=== PATIENT | male | born 1995 | race Caucasian/White ===

== ENCOUNTER 2019-11-27 23:41 | Emergency (ER) | payer SELFPAY ==
--- NOTE | 2019-11-27 23:47 | ED_ITS ---
HPI - Back Pain/Injury General: Stated Complaint: back pain Time Seen by Provider: 11/27/19 23:47 Source: patient Mode of arrival: ambulatory Limitations: no limitations History of Present Illness: HPI Narrative: Patient reports he was at the [facility] and was lifting a basket of close and turned with it feeling a pop in his left lower back. Since that time patient has had worsening back pain and discomfort. Patient appears well. Patient appears in mild to moderate pain. Review of Systems General: Reports: 10 or more systems reviewed and unremarkable except in HPI and below Musc: Reports: back pain Physical Exam Const: COMMON NORMALS: no apparent distress and oriented x3 GENERAL APPEARANCE: cooperative HENMT: COMMON NORMALS: normocephalic, external ears normal, EAC's normal, TM's normal bilaterally and external nose normal HEAD & SCALP: normal to inspection and normocephalic FACE & SINUS: normal facial exam NOSE: external nose normal GENERAL EAR: hearing not grossly impaired EXTERNAL EAR: Yes external ears normal EXTERNAL AUDITORY CANAL: EAC's normal TYMPANIC MEMBRANE: TM's normal bilaterally MOUTH: oral and palatal mucosa normal THROAT: posterior oropharynx normal Eye: COMMON NORMALS: PERRL and EOMs intact bilaterally PUPIL: Yes PERRL Neck/C-Spine: COMMON NORMALS: full ROM and no lymphadenopathy Lymph: LYMPHATIC: no lymphedema noted Chest: COMMONS NORMALS: inspection of chest normal and palpation of chest normal Resp: COMMON NORMALS: normal respiratory effort and clear to auscultation bilaterally AUSCULTATION: clear to auscultation bilaterally Cardio: COMMON NORMALS: regular rate and regular rhythm RATE: regular rate RHYTHM: regular rhythm GI: COMMON NORMALS: normal to inspection, nondistended, normoactive bowel sounds and non-tender : COMMON NORMALS: Yes no CVA tenderness BLADDER/KIDNEY EXAM: Yes no CVA tenderness Back/Pelvis: COMMON NORMALS: no CVA tenderness LUMBAR SPINE/LOWER BACK: Yes paraspinal muscle tenderness Lumbar paraspinal muscle tenderness: left and Yes paraspinal muscle spasm Lumbar paraspinal muscle spasm: left Extremity: COMMON NORMALS: normal to inspection GENERAL: No edema Neuro: COMMON NORMALS: oriented x3, moves all extremities and no focal motor deficits Psych: COMMON NORMALS: mental status grossly normal and cooperative Skin: COMMON NORMALS: no rashes or lesions noted GENERAL SKIN EXAM: no rashes or lesions noted MDM - Back Pain/Injury MDM Narrative: Medical decision making narrative: Patient comes in today with complaints of low back pain after maneuvering a basket of laundry. Patient appears well. Patient appears in moderate pain. Exam notes paraspinous muscle tenderness and tightness to the left lower back. No vertebral tenderness is noted. Negative leg lift test. Differential diagnosis includes lumbar myofascial strain, intervertebral disc disease, facet arthropathy. Reviewed exam with patient with recommendations for treatment and follow-up. Patient was injected with Toradol and orphenadrine for pain in the emergency department. Patient will be given prescriptions for ibuprofen and tizanidine with recommendations to follow-up in 1 week with primary care. Patient was encouraged to maintain activity level as tolerated and to return to the ER as needed for worsening signs and symptoms. Discharge Plan Discharge Patient Disposition: Home, Self-Care Clinical Impression: Acute lumbar myofascial strain Qualifiers: Encounter type: initial encounter Qualified Code(s): S39.012A - Strain of muscle, fascia and tendon of lower back, initial encounter Condition: Stable Prescriptions: New ibuprofen 600 mg tablet 600 mg PO Q6H PRN (Reason: pain) Qty: 60 RF: 0 tizanidine 4 mg tablet 4 mg PO Q6H PRN (Reason: muscle spasticity) Qty: 20 RF: 0 Discharge Orders: Discharge Order (Routine); Ordered 11/27/19 Ordered By: Jamin Martinez Referrals: [facility] [Other] Discharge Diet: Usual diet Discharge Activity: Increase activity as tolerated Patient Instructions: Low Back Strain (ED) Activity Restrictions/Additional Instructions: Activity as tolerated Gentle stretching and range of motion exercise Drink plenty of water with medication Ice or heat for further pain relief Menthol containing muscle rub for further pain relief Follow-up with primary care in one week as needed Stand Alone Forms: Work/School Release Coding Level of Care Code ED [employer] for [employer]cell Li Exam Problem Focused
[2019-11-27 23:56] VITALS: BP 143/89; PULSE 88; RESP 16; TEMP 37.3; O2SAT 97; BMI 28.1
[2019-11-28] MEDS: orphenadrine 30 mg/mL Inj 2 mL 60 MG IM (00:10)
[2019-11-28] MEDS: ketorolac 30 mg/mL INJ IM (00:11)
== END 2019-11-28 00:26 | disposition home or self-care (01) ==
PROVIDERS: Emergency Provider Nurse Practitioner Family
DX: S39.012A Strain of muscle, fascia and tendon of lower back, initial encounter (principal); X50.9XXA Other and unspecified overexertion or strenuous movements or postures, initial encounter; Y92.89 Other specified places as the place of occurrence of the external cause
CPT/HCPCS: 96372; 99281; 99283; J1885; J2360